=== PATIENT | female | born 1945 | race African-American/Black ===

== ENCOUNTER 2016-11-08 08:28 | Day surgery (SDC) | payer OTHER, BC ==
[2016-11-08] MEDS ORDERED: ALCAINE or OPHTHETIC 1 DOSE AFFEYE ONE (08:50)
[2016-11-08] MEDS ORDERED: ALPHAGAN-P OPHTH 1 DOSE AFFEYE ONE (08:53)
[2016-11-08] MEDS ORDERED: TETRACAINE 0.5% OPHTH 1 DOSE AFFEYE ONE (09:16)
[2016-11-08 10:05] VITALS: BP 166/86
== END 2016-11-08 09:24 | disposition home or self-care (01) ==
LOC: SURG1 08:28
PROVIDERS: ATTEND Ophthalmology
PROC: 08QD3ZZ Repair Left Iris, Percutaneous Approach (ICD-10-PCS; principal; 2016-11-08 08:45)
DX: H40.1122 Primary open-angle glaucoma, left eye, moderate stage (principal)
CPT/HCPCS: 65855

== ENCOUNTER → 2016-12-13 | Day surgery (SDC) | payer OTHER, BC ==
[~2016-12-13] MED LIST: ALPHAGAN-P OPHTH 1 DOSE AFFEYE ONE
[2016-12-13] MEDS: TETRACAINE 0.5% OPHTH 1 DOSE AFFEYE ONE ×2 (07:17→07:49)
[2016-12-13 07:38] VITALS: BP 176/78
== END ==
LOC: SURG1 07:12
PROVIDERS: ATTEND Ophthalmology
PROC: 08QD3ZZ Repair Left Iris, Percutaneous Approach (ICD-10-PCS; principal; 2016-12-13 08:30)
DX: H40.1122 Primary open-angle glaucoma, left eye, moderate stage (principal)
CPT/HCPCS: 65855